=== PATIENT | male | born 1950 | race African-American/Black ===

== ENCOUNTER 2022-12-27 11:34 | Inpatient (IN) | payer MEDICARE, BC ==
[~2022-12-27] VITALS: Ht 182.9 cm; Wt 114.8 kg
[2022-12-27 12:40] LABS: BASOPHILS % 0.8 % (0.0-2.0); EOSINOPHILS % 0.6 % (0.0-5.0); HEMATOCRIT. 39.4 % (42.0-52.0); HEMOGLOBIN. 12.9 g/dL (14.0-18.0); LYMPHOCYTES % 20.6 % (20.0-50.0); MEAN CORPUSCULAR HEMOGLOBIN 30.5 pg (28.0-32.0); MEAN CORPUSCULAR HGB CONC 32.8 g/dL (31.0-37.0); MEAN CORPUSCULAR VOLUME 92.9 fL (80.0-94.0); MEAN PLATELET VOLUME 8.4 fl (7.4-10.4); MONOCYTES % 8.8 % (2.0-8.0); NEUTROPHILS % 69.2 % (40.0-76.0); PLATELET 346 x1000/uL (130-400); RED BLOOD CELL COUNT 4.24 mill/uL (4.7-6.1); RED CELL DISTRIBUTION WIDTH 14.2 % (11.6-14.6); WHITE BLOOD COUNT 6.4 x1000/uL (4.5-11.0)
[2022-12-27 12:49] LABS: CLARITY URINE CLEAR (CLEAR); COLOR URINE YELLOW (YELLOW); GLUCOSE URINE NEGATIVE (NEGATIVE); KETONES URINE NEGATIVE (NEGATIVE); LEUKOCYTE ESTERASE URINE NEGATIVE (NEGATIVE); NITRITE URINE NEGATIVE (NEGATIVE); OCCULT BLOOD URINE TRACE (NEGATIVE); PH URINE 6.5 (4.5-8.0); PROTEIN URINE NEGATIVE (NEGATIVE); SPECIFIC GRAVITY URINE 1.008 (1.005-1.030); UROBILINOGEN URINE 0.2 E.U./dL (0.2-1.0)
[2022-12-27 12:52] LABS: CHLORIDE 106 mEq/L (98-107); INDEX HEMOLYSI 1 (1-3); INDEX ICTERIC 1 (1-4); INDEX LIPEMIC 1 (1-3); POTASSIUM 3.9 mEq/L (3.5-5.1); SODIUM 139 mEq/L (136-145)
[2022-12-27 12:52] LABS: BACTERIA URINE NONE SEEN; RBC URINE NONE SEEN /hpf (0-2); SQUAMOUS EPITHELIAL CELL URINE NONE SEEN /lpf (RARE/1+); WBC URINE NONE SEEN /hpf (0-2); YEAST URINE NONE SEEN
[2022-12-27 13:00] LABS: PROTHROMBIN TIME 10.7 sec (9.6-11.0)
[2022-12-27 13:01] LABS: ALANINE AMINOTRANSFERASE 28 IU/L (13-61); ALBUMIN 4.2 g/dL (3.4-5.0); ASPARTATE AMINOTRANSFERASE 19 IU/L (15-37); BILIRUBIN TOTAL 0.6 mg/dL (0.1-1.0); CALCIUM 9.4 mg/dL (8.5-10.1); CARBON DIOXIDE 27 mEq/L (21-32); CREATINE KINASE 160 IU/L (39-308); CREATININE 1.1 mg/dL (0.6-1.3); ETHANOL BLOOD < 10 mg/dL (<10); GLUCOSE 102 mg/dL (70-105); NT PRO B-TYPE NATRIURETIC PEP 63 pg/mL (5-125); PROTEIN TOTAL 8.5 g/dL (6.0-8.3); TROPONIN I HIGH SENSITIVITY 7 ng/L (<78); UREA NITROGEN BLOOD 15 mg/dL (7-21)
[2022-12-27] MEDS ORDERED: IOHEXOL-350 100 ML BOTTLE ONE (13:07)
[2022-12-27] MEDS ORDERED: ONDANSETRON HCL 4MG/2ML INJ IV PRN ×2 (13:45→14:45)
[2022-12-27] MEDS ORDERED: ACETAMINOPHEN 325MG TABLET PO PRN (13:45)
[2022-12-27] MEDS ORDERED: ASPIRIN 81MG TABLET PO NR (14:00)
[2022-12-27 14:02] LABS: *AMPHETAMINES SCREEN URINE NEGATIVE (NEGATIVE); *BARBITURATES SCREEN URINE NEGATIVE (NEGATIVE); *BENZODIAZEPINES SCREEN URINE NEGATIVE (NEGATIVE); *COCAINE SCREEN URINE NEGATIVE (NEGATIVE); CANNABINOID URINE SCREEN NEGATIVE (NEGATIVE); ECSTASY MDMA SCREEN URINE NEGATIVE (NEGATIVE); METHADONE URINE SCREEN NEGATIVE (NEGATIVE); OPIATES URINE SCREEN NEGATIVE (NEGATIVE); PHENCYCLIDINE URINE SCREEN NEGATIVE (NEGATIVE)
[2022-12-27] MEDS ORDERED: IPRATROPIUM/ALBUTEROL 0.5-3(2.5)MG/3ML NEB HHN PRN (14:45)
[2022-12-27 15:09] LABS: PHOSPHORUS 2.8 mg/dL (2.5-4.9)
[2022-12-27] MEDS ORDERED: CLONIDINE 0.1MG TABLET PO PRN (15:15)
[2022-12-27 15:20] VITALS: BP 171/66; PULSE 94; RESP 19; TEMP 98.4
[2022-12-27] MEDS ORDERED: CLOPIDOGREL 75MG TABLET PO NR (15:30)
[2022-12-27 15:32] LABS: T4 FREE 0.97 ng/dL (0.76-1.46); THYROID STIMULATING HORMONE 1.9 uIU/mL (0.36-3.74)
[2022-12-27 15:54] LABS: VITAMIN B12 SERUM 1874 pg/mL (211-911)
[2022-12-27 16:00] VITALS: BP 171/66; PULSE 78; RESP 19; TEMP 97.2
[2022-12-27] MEDS ORDERED: ASPI-986 PO (16:03)
[2022-12-27 16:17] LABS: FOLIC ACID (FOLATE) SERUM > 20.00 ng/mL (>5.38)
[2022-12-27 16:27] LABS: TROPONIN I HIGH SENSITIVITY 7 ng/L (<78)
[2022-12-27 20:00] VITALS: BP 106/67; PULSE 68; RESP 19; TEMP 97.9
[2022-12-27] MEDS: ATORVASTATIN CALCIUM 40MG TABLET PO SCH (21:24)
[2022-12-28] VITALS: BP_SYST 106; BP_SYST 153; BP_DIAS 56; BP_DIAS 61; PULSE 66; RESP 18; TEMP 97.9
[2022-12-28 04:00] VITALS: BP 132/60; PULSE 67; RESP 18; TEMP 97.7
[2022-12-28] MEDS: PANTOPRAZOLE 40MG DR TABLET PO SCH (06:11)
[2022-12-28 07:20] LABS: HEMATOCRIT 36.4 % (42.0-52.0); HEMOGLOBIN 12.2 g/dL (14.0-18.0); MEAN CORPUSCULAR HEMOGLOBIN 31.1 pg (28.0-32.0); MEAN CORPUSCULAR HGB CONC 33.7 g/dL (31.0-37.0); MEAN CORPUSCULAR VOLUME 92.5 fL (80.0-94.0); PLATELET 298 x1000/uL (130-400); RED BLOOD CELL COUNT 3.93 mill/uL (4.7-6.1); WHITE BLOOD COUNT 4.9 x1000/uL (4.5-11.0)
[2022-12-28 07:45] LABS: INDEX HEMOLYSI 1 (1-3); INDEX ICTERIC 1 (1-4); INDEX LIPEMIC 1 (1-3)
[2022-12-28 07:50] LABS: CALCIUM 8.4 mg/dL (8.5-10.1); CARBON DIOXIDE 28 mEq/L (21-32); CHLORIDE 108 mEq/L (98-107); GLUCOSE 99 mg/dL (70-105); SODIUM 142 mEq/L (136-145); UREA NITROGEN BLOOD 11 mg/dL (7-21)
[2022-12-28 08:00] VITALS: BP 143/67; PULSE 67; RESP 18; TEMP 97.5
[2022-12-28] MEDS: CLOPIDOGREL 75MG TABLET PO SCH (09:10)
[2022-12-28] MEDS: ASPIRIN 81MG EC TABLET PO SCH (09:11)
[2022-12-28 12:00] VITALS: BP 136/62; PULSE 92; RESP 18; TEMP 97.8
[2022-12-28] MEDS: ENOXAPARIN 40MG/0.4ML SYR SUBCUT SCH (13:14)
[2022-12-28 16:00] VITALS: BP 157/62; PULSE 65; RESP 18; TEMP 98.1
[2022-12-28 20:00] VITALS: BP 139/59; PULSE 71; RESP 16; TEMP 98.1
[2022-12-28] MEDS: ATORVASTATIN CALCIUM 40MG TABLET PO SCH (20:06)
[2022-12-29] VITALS: BP 132/61; PULSE 64; RESP 16; TEMP 98.1
[2022-12-29 04:00] VITALS: BP 141/60; PULSE 67; RESP 18; TEMP 97.5
[2022-12-29] MEDS: PANTOPRAZOLE 40MG DR TABLET PO SCH (06:21)
[2022-12-29 08:00] VITALS: BP 150/82; PULSE 67; RESP 16; TEMP 97.5
[2022-12-29] MEDS: ASPIRIN 81MG EC TABLET PO SCH (08:52)
[2022-12-29] MEDS: CLOPIDOGREL 75MG TABLET PO SCH (08:52)
[2022-12-29 12:00] VITALS: BP 148/78; PULSE 70; RESP 18; TEMP 97.3
[2022-12-29] MEDS: ENOXAPARIN 40MG/0.4ML SYR SUBCUT SCH (13:01)
[2022-12-29 16:00] VITALS: BP 156/73; PULSE 76; RESP 18; TEMP 96.3
[2022-12-29 20:00] VITALS: BP 141/65; PULSE 69; RESP 17; TEMP 97.1
[2022-12-29] MEDS: ATORVASTATIN CALCIUM 40MG TABLET PO SCH (21:05)
[2022-12-29] MEDS: FAMOTIDINE 20MG TABLET PO SCH (21:05)
[2022-12-30] VITALS (7 sets, daily range): BP systolic 143–176; BP diastolic 63–73; PULSE 67–84; RESP 16–20; TEMP 96.1–98.1; O2SAT 98
[2022-12-30] MEDS: FAMOTIDINE 20MG TABLET PO SCH ×2 (08:45→20:38)
[2022-12-30] MEDS: CLOPIDOGREL 75MG TABLET PO SCH (08:46)
[2022-12-30] MEDS: ASPIRIN 81MG EC TABLET PO SCH (08:46)
[2022-12-30] MEDS ORDERED: CLOP-31 PO (08:51)
[2022-12-30] MEDS ORDERED: FAMO20TA8 PO (08:51)
[2022-12-30] MEDS ORDERED: LIP40 PO (08:51)
[2022-12-30] MEDS ORDERED: ASPI-1406 PO (08:51)
[2022-12-30] MEDS: ENOXAPARIN 40MG/0.4ML SYR SUBCUT SCH (13:01)
[2022-12-30] MEDS: ATORVASTATIN CALCIUM 40MG TABLET PO SCH (20:37)
[2022-12-31] VITALS: BP 127/61; PULSE 72; RESP 18; TEMP 97.6
[2022-12-31 04:00] VITALS: BP 143/62; PULSE 74; RESP 18; TEMP 97.7
[2022-12-31 06:49] LABS: CHLORIDE 107 mEq/L (98-107); INDEX HEMOLYSI 1 (1-3); INDEX ICTERIC 1 (1-4); INDEX LIPEMIC 1 (1-3); SODIUM 139 mEq/L (136-145)
[2022-12-31 06:54] LABS: CALCIUM 8.5 mg/dL (8.5-10.1); CARBON DIOXIDE 26 mEq/L (21-32); CREATININE 1.1 mg/dL (0.6-1.3); GLUCOSE 112 mg/dL (70-105); UREA NITROGEN BLOOD 15 mg/dL (7-21)
[2022-12-31 07:01] LABS: HEMATOCRIT 39.3 % (42.0-52.0); HEMOGLOBIN 13.2 g/dL (14.0-18.0); MEAN CORPUSCULAR HEMOGLOBIN 31.2 pg (28.0-32.0); MEAN CORPUSCULAR HGB CONC 33.6 g/dL (31.0-37.0); MEAN CORPUSCULAR VOLUME 92.9 fL (80.0-94.0); PLATELET 315 x1000/uL (130-400); RED BLOOD CELL COUNT 4.24 mill/uL (4.7-6.1); RED CELL DISTRIBUTION WIDTH 13.6 % (11.6-14.6); WHITE BLOOD COUNT 6.1 x1000/uL (4.5-11.0)
[2022-12-31 07:57] VITALS: BP 153/68; PULSE 83; RESP 18; TEMP 99
[2022-12-31] MEDS: CLOPIDOGREL 75MG TABLET PO SCH (09:11)
[2022-12-31] MEDS: ASPIRIN 81MG EC TABLET PO SCH (09:11)
[2022-12-31] MEDS: FAMOTIDINE 20MG TABLET PO SCH (09:11)
[2022-12-31 11:18] VITALS: BP 153/68; PULSE 83; TEMP 99.5; O2SAT 99
== END 2022-12-31 12:00 | disposition home or self-care (01) | DRG 66 ==
LOC: ER 11:34 → 8WST 13:44 → EDBEDREQ 13:47 → EDBEDREQTM 13:47 → EDBEDREQ 13:48
PROVIDERS: ADMIT Internal Medicine; ATTEND Internal Medicine
DX: I63.9 Cerebral infarction, unspecified (principal); D63.8 Anemia in other chronic diseases classified elsewhere; E66.9 Obesity, unspecified; G83.24 Monoplegia of upper limb affecting left nondominant side; I10 Essential (primary) hypertension; Z68.32 Body mass index [BMI] 32.0-32.9, adult; G83.9 Paralytic syndrome, unspecified; E78.00 Pure hypercholesterolemia, unspecified; R53.81 Other malaise; R29.700 NIHSS score 0; R47.1 Dysarthria and anarthria; Z79.82 Long term (current) use of aspirin; Z79.899 Other long term (current) drug therapy; Z79.02 Long term (current) use of antithrombotics/antiplatelets; Z87.891 Personal history of nicotine dependence
CPT/HCPCS: 36415; 70496; 70498; 70551; 71045; 80048; 80053; 80061; 80305; 80320; 81003; 82550; 82607; 82746; 83036; 83735; 83880; 84100; 84439; 84443; 84484; 85025; 85027; 86850; 86900; 93005; 93306; 93970; 97162; 97164; 97166; 99291; J1650; Q9967; G0480